=== PATIENT | female | born 1985 | race Caucasian/White ===

== ENCOUNTER 2018-05-30 09:46 | Emergency (ER) | payer OTHER, SELFPAY ==
[2018-05-30 10:08] VITALS: BP 146/89; PULSE 92; RESP 16; TEMP 37; O2SAT 96
--- NOTE | 2018-05-30 10:27 | ED.GENADUL_ITS ---
Disposition Clinical Impression: Acute streptococcal pharyngitis Disposition: HOME Condition: Good Instructions: Pharyngitis (ED) Additional Instructions: Follow-up with regular doctor if not improving in 5 days time Tylenol and/or ibuprofen as needed for discomfort. Take antibiotic as prescribed. Warm salt water gargles will assist in decreasing discomfort. Hydrate with fluids and/or popsicles. Prescriptions: Azithromycin [Azithromycin Pack #6] 250 mg PO DIRECTED #6 tablet Medical Decision Making - Lab Data POC Strep Test-MELY(Rapid) Start: 05/30/18 10: 14 Freq: .Rapid Strep Test Status: Active Document 05/30/18 10:15 MMQ (Rec: 05/30/18 10:15 MMQ [id number]) Strep test-MELY(Rapid)-POC POC-Strep test-MELY (Rapid) Positive - Medical Decision Making 33-year-old female with recurrent pharyngitis, positive strep test. There may be a cycling of the infection due to multiple sick family members and I discussed with the patient and her . We will treat with a course of azithromycin. Pt will follow up with PMD for recheck if not improving History of Present Illness - General Chief complaint: Sorethroat Stated complaint: STREP? Time Seen by Provider: 05/30/18 10:24 - History of Present Illness Initial comments: Healthy 23-year-old female recently treated for streptococcal pharyngitis, with recurrent sick contacts with family members, now with 2 days of recurrence mild , posterior throat pain is nonradiating constant, improved with fluids. No change to voice or ability to swallow. - Related Data Lysine 500 mg PO DAILY 12/09/14 Multivitamins W-Ca,Fe [Prenavite] 1 each PO DAILY 12/09/14 Cholecalciferol (Vitamin D3) [Vitamin D3] 2,000 unit PO DAILY #90 cap 05/26/17 Levothyroxine [Levothroid] 25 mcg PO DAILY #90 tab-cap 05/26/17 Norgestimate-Ethinyl Estradiol [Sprintec] 1 tab-cap PO DAILY #3 pack 05/26/17 Azithromycin [Azithromycin Pack #6] 250 mg PO DIRECTED #6 tablet 05/30/18 Allergies Allergy/AdvReac Type Severity Reaction Status Date / Time No Known Allergies Allergy Unverified 05/30/18 10:11 Review of Systems Other: 6 systems reviewed, otherwise negative Past Medical History - Past Medical History See nursing note General Exam - General Limitations: no limitations General appearance: alert, in no apparent distress - Head Head exam: Present: atraumatic, normocephalic - Eye Eye exam: Present: PERRL, EOMI - ENT ENT exam: Present: other (Bilateral tonsillar erythema, uvula midline, no asymmetry, scant exudate present.) - Neck Neck exam: Present: tenderness, full ROM, lymphadenopathy. Absent: meningismus - Respiratory Respiratory exam: Absent: respiratory distress - Cardiovascular Cardiovascular Exam: Present: regular rate, normal rhythm - Neurological Exam Neurological exam: Present: alert, oriented X3 - Psychiatric Psychiatric exam: Present: normal affect, normal mood - Skin Skin exam: Present: warm, dry, intact Course Vital Signs - 24 hr 05/30/18 10:08 Temperature 37 C Pulse 92 H Respiratory 16 Rate Blood Pressure 146/89 Pulse Oximetry 96
== END 2018-05-30 10:35 | disposition home or self-care (01) ==
PROVIDERS: Emergency Provider Emergency Medicine; PCP Physician Assistant Medical
DX: J02.0 Streptococcal pharyngitis (principal)
CPT/HCPCS: 87880; 99283

== ENCOUNTER 2019-06-15 14:29 | Outpatient (REF) | payer OTHER, SELFPAY ==
[2019-06-15 22:11] LABS: ALT 29 U/L (14-59); AST 12 U/L (15-37); Albumin 3.5 g/dL (3.4-5.0); Alkaline Phosphatase 83 U/L (46-116); Anion Gap 9.9 mmol/L (3-11); BUN 11 mg/dL (7-18); Bilirubin, Total 0.2 mg/dL (0.2-1.0); CO2 27.1 mmol/L (21.0-32.0); CREATININE 0.61 mg/dL (0.55-1.02); Calcium 8.9 mg/dL (8.5-10.1); Calculated LDL 102 mg/dL; Chloride 102 mmol/L (98-107); Cholesterol 165 mg/dL (50-200); Glucose 94 mg/dL (70-100); HDL Cholesterol 39 mg/dL (40-60); Potassium 3.9 mmol/L (3.5-5.1); Sodium 139 mmol/L (136-145); TSH 1.66 uIU/mL (0.36-3.74); Triglyceride 123 mg/dL (30-150)
[2019-06-15 22:22] LABS: Hemoglobin A1C 5.8 % (4.5-6.2)
[2019-06-15 22:28] LABS: Total Protein 7.3 g/dL (6.4-8.2)
== END 2019-06-15 14:49 ==
LOC: NCHCN 14:29
PROVIDERS: PCP Physician Assistant Medical; Visit Provider Physician Assistant Medical
DX: Z00.00 Encounter for general adult medical examination without abnormal findings (principal); E03.9 Hypothyroidism, unspecified; Z13.1 Encounter for screening for diabetes mellitus; Z13.220 Encounter for screening for lipoid disorders
CPT/HCPCS: 80053; 80061; 83721; 83036; 84443

== ENCOUNTER 2019-09-20 08:08 | Outpatient (CLI) | payer OTHER, SELFPAY ==
[2019-09-20 08:53] LABS: Hemoglobin A1C 5.6 % (4.5-6.2)
== END 2019-09-20 08:28 ==
PROVIDERS: PCP Physician Assistant Medical; Visit Provider Advanced Practice Midwife
DX: E03.9 Hypothyroidism, unspecified (principal); Z86.32 Personal history of gestational diabetes
CPT/HCPCS: 36415; 83036; 84443

== ENCOUNTER 2019-10-19 10:48 | Outpatient (CLI) | payer OTHER, SELFPAY ==
--- NOTE | 2019-10-19 10:00 | DIABASSESS_ITS ---
DESCRIPTION/ASSESSMENT: Eva Mcdonald presents for nutrition consult for gestational diabetes with fasting blood sugars elevated in her first trimester consistently above 100mg/dl. Post meal blood sugars at goal of less than 135mg/dl. Currently taking 1500mg Metformin. Eva had gestational diabetes with her past with 7pound 15oz baby 2 weeks early. Eva states she is exhausted. She has is[employer]genix protein drink for breakfast with apple, banana, yogurt as snack; lunch is another shake, salad or leftovers. SHe has found 1/2 c pasta does not raise her blood sugar. Supper of meat, potato, vegetable. She has string cheese for snack or small bag chips or pretzels. States she is physically inactive due to her fatigue but hopes to increase this when she feels better. INTERVENTION: Eva is engaged in the conversation and comes well informed. She has already cut her carbohydrate portions. Reviewed gestational diabetes food guidelines focused on number of servings per meal and portions for 1 carbohydrate serving. Reviewed distribution of carbohydrate. Discussed options for affecting fasting blood sugar including physical activity and snack versus no snack in evening. ACTION PLAN: Eva will: document food and blood sugars per protocol; track evening food for impact on fasting blood sugar. She will increase her physical activity when she regains some energy. We will be in touch by telephone if blood sugars are not reaching fasting goal. Face to face 35 minutes billed 2 units MNT 10/22/19 Eva presents for diabetes self management with instructions to begin Levemir insulin. Instructed in the use of insulin pen and she is able to return demonstration without difficulty. Reviewed injection sites, disposal of needles, hypoglycemia symptoms and treatment. Explained action of medication. 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 She has my contact information if she needs support for this tonight. TC to say no needles. She is given 10 pen needles to get her started. Eva will contact her provider for a prescription. JANNET rowell,CDE Communication over weekend. Fasting blood sugars 107 Friday and 104 Friday AM. Explained tiny dose can be adjusted. She will contact [facility] in the morning.
== END 2019-10-19 11:08 ==
PROVIDERS: PCP Physician Assistant Medical; Visit Provider Dietitian, Registered
DX: O24.414 Gestational diabetes mellitus in pregnancy, insulin controlled (principal); Z71.3 Dietary counseling and surveillance
CPT/HCPCS: 97802

== ENCOUNTER 2019-10-19 14:39 | Outpatient (REF) | payer OTHER, SELFPAY ==
[2019-10-19 15:47] LABS: *AMPHETAMINES SCREEN URINE Negative (Negative); *BARBITURATES SCREEN URINE Negative (Negative); *BENZODIAZEPINES SCREEN URINE Negative (Negative); Cannabinoids THC Negative (Negative); Cocaine Screen,Urine Negative (Negative); METHADONE URINE SCREEN Negative (Negative); OPIATES URINE SCREEN Negative (Negative)
[2019-10-19 15:56] LABS: Tricyclic Antidepressants Negative (Negative)
[2019-10-23 11:39] LABS: Buprenorphine Negative; Norbuprenorphine Negative
== END 2019-10-19 14:59 ==
LOC: LBN 14:39
PROVIDERS: PCP Physician Assistant Medical; Visit Provider Advanced Practice Midwife
DX: Z34.91 Encounter for supervision of normal pregnancy, unspecified, first trimester (principal)
CPT/HCPCS: 80307; 87086

== ENCOUNTER 2019-10-21 11:48 | Outpatient (REF) | payer OTHER, SELFPAY | END 2019-10-21 12:08 | LOC: LBN 11:48 | PROVIDERS: PCP Physician Assistant Medical; Visit Provider Advanced Practice Midwife | DX: R69 Illness, unspecified (principal) | CPT/HCPCS: 80307; 87086 ==

== ENCOUNTER 2019-10-25 10:20 | Outpatient (REF) | payer OTHER, SELFPAY ==
[2019-10-25 13:04] LABS: PROTEIN 8.7 mg/dL (0.0-11.9)
[2019-10-25 13:07] LABS: TOTAL PROTEIN,URINE TIMED 234.9 mg/24hr (0.0-149.1); Total Volume 2700 ml
== END 2019-10-25 10:40 ==
LOC: NCHCN 10:20
PROVIDERS: Obstetrics & Gynecology; PCP Physician Assistant Medical; Visit Provider Physician Assistant Medical
DX: O24.410 Gestational diabetes mellitus in pregnancy, diet controlled (principal)
CPT/HCPCS: 81050; 84155

== ENCOUNTER 2019-11-18 11:34 | Outpatient (CLI) | payer OTHER, SELFPAY ==
[2019-11-18 12:01] LABS: Abs Immature Grans 0.01 k/cumm (0.0-0.09); Absolute Basophil Count 0.01 k/cumm (0.0-0.2); Absolute Eosinophil Count 0.08 k/cumm (0.0-0.7); Absolute Lymphocyte Count 1.74 k/cumm (1.2-3.4); Absolute Monocyte Count 0.36 k/cumm (0.11-0.7); Absolute Neutrophil Count 5.76 k/cumm (1.2-6.7); Basophils % 0.1; HCT 34.5 % (36.0-46.0); HGB 11.7 g/dL (12.0-15.5); Immature Grans % 0.1 %; Lymphocytes % 21.9; Mean Corp. HGB Concentration 33.9 g/dL (32.0-36.0); Mean Corpuscular Hemoglobin 30.3 pg (27.0-33.0); Mean Corpuscular Volume 89.4 fL (80-95); Mean Platelet Volume 10.6 fL (8.0-11.0); Monocytes % 4.5; Neutrophils % 72.4; Platelet Count 248 x1000/uL (130-400); RBC 3.86 m/cumm (4.00-5.20); RBC Distribution Width 13.2 % (11.7-14.6); White Blood Cell Count 7.96 k/cumm (4.4-10.8)
[2019-11-18 13:26] LABS: TSH (W/Ref FT4) 2.12 uIU/mL (0.36-3.74)
[2019-11-19 09:59] LABS: Hepatitis B Surface Ag Negative (Negative); Hepatitis C Ab w Rflx HCV PCR Negative (Negative)
[2019-11-19 10:10] LABS: HIV-1/2 Ag & Ab Screen Negative (Negative)
[2019-11-19 13:05] LABS: Rubella IgG Ab (UVM) Positive (See Note); Varicella IgG Antibody Positive (See Note)
[2019-11-19 16:26] LABS: AFP 32.8 ng/mL; Calculated age at EDD 36 years; Cigarette smoking status non-Smoker; GA used in risk estimate Scan estimate; INHIBIN 148 pg/mL; IVF Pregnancy No; Initial or repeat testing Initial testing; Insulin dependent diabetes No; Maternal Weight 223 lbs; Number of Fetuses 1; Physician Phone Number 802-748-7300; Prev Down(T21)/Trisomy Pregnan No; Prev Pregnancy w/NTD No; RECOMMENDED FOLLOW UP None.; Results Summary Normal risk; hCG, TOTAL 46.8 IU/mL; uE3 0.86 ng/mL; uE3 MoM 1.33 MoM
[2019-11-19 16:47] LABS: Syphilis Total Ab w/Reflex Nonreactive (Nonreactive)
== END 2019-11-18 11:54 ==
PROVIDERS: PCP Physician Assistant Medical; Visit Provider Obstetrics & Gynecology Gynecology
DX: Z34.91 Encounter for supervision of normal pregnancy, unspecified, first trimester (principal); Z36.89 Encounter for other specified antenatal screening
CPT/HCPCS: 36415; 81511; 86787; 86803; 86850; 86900; 86901; 87340; 87389; 84443; 85025; 86762; 86780

== ENCOUNTER 2020-01-19 00:44 | Outpatient (CLI) | payer OTHER, SELFPAY ==
--- NOTE | 2020-01-19 06:45 | DI.US_ITS ---
EXAM: US OB KENNEY WEIGHT CLINICAL HISTORY: DIABETES,Z34.90. COMPARISON: No exams were available for comparison TECHNIQUE: Transabdominal obstetrical ultrasound performed. FINDINGS: Sonographic images demonstrate a single intrauterine gestation. The placenta is posterior. Sonographically assessed gestational age based upon 25 weeks 5 days which is approximately 1 week gre ater than clinical age. Estimated date of delivery based on this ultrasound is: 28 April 2020 The estimated weight is 845 grams, corresponding to the 88th percentile. heart rate motion is Dopplered at: 147 bpm. Amniotic fluid index: 14.6. Amount of fluid is within normal limits. IMPRESSION: Single live intrauterine gestation as above. DATA REPOSITORY:
== END 2020-01-19 01:04 ==
PROVIDERS: PCP Physician Assistant Medical; Visit Provider Obstetrics & Gynecology
DX: Z34.92 Encounter for supervision of normal pregnancy, unspecified, second trimester (principal); Z3A.25 25 weeks gestation of pregnancy
CPT/HCPCS: 76816

== ENCOUNTER 2020-02-17 16:10 | Outpatient (REF) | payer OTHER, SELFPAY ==
[2020-02-17 16:29] LABS: Abs Immature Grans 0.03 k/cumm (0.0-0.09); Absolute Basophil Count 0.01 k/cumm (0.0-0.2); Absolute Eosinophil Count 0.11 k/cumm (0.0-0.7); Absolute Lymphocyte Count 1.79 k/cumm (1.2-3.4); Absolute Monocyte Count 0.45 k/cumm (0.11-0.7); Absolute Neutrophil Count 6.03 k/cumm (1.2-6.7); Basophils % 0.1; Eosinophils % 1.3; HCT 32.5 % (36.0-46.0); HGB 10.9 g/dL (12.0-15.5); Immature Grans % 0.4 %; Lymphocytes % 21.3; Mean Corp. HGB Concentration 33.5 g/dL (32.0-36.0); Mean Corpuscular Hemoglobin 30.5 pg (27.0-33.0); Mean Platelet Volume 11.3 fL (8.0-11.0); Monocytes % 5.3; Neutrophils % 71.6; Platelet Count 217 x1000/uL (130-400); RBC 3.57 m/cumm (4.00-5.20); RBC Distribution Width 13.4 % (11.7-14.6); White Blood Cell Count 8.42 k/cumm (4.4-10.8)
[2020-02-17 18:45] LABS: Hemoglobin A1C 5.6 % (3.8-5.6)
== END 2020-02-17 16:30 ==
LOC: LBN 16:10
PROVIDERS: PCP Physician Assistant Medical; Visit Provider Obstetrics & Gynecology
DX: O24.414 Gestational diabetes mellitus in pregnancy, insulin controlled (principal)
CPT/HCPCS: 83036; 85025

== ENCOUNTER 2020-02-22 01:56 | Outpatient (CLI) | payer OTHER, SELFPAY ==
--- NOTE | 2020-02-22 07:15 | DI.US_ITS ---
EXAM: US OB KENNEY WEIGHT CLINICAL HISTORY: serial growth assessments,h/o gest diabetes,z86.32. COMPARISON: US OB KENNEY WEIGHT from 01/19/2020 US OB KENNEY WEIGHT from 01/19/2020 TECHNIQUE: Transabdominal obstetrical ultrasound performed. FINDINGS: Sonographic images demonstrate a single living intrauterine gestation in transverse position with the head toward the maternal left.. Sonographically assessed gestational age is 31 weeks 0 days. Estimated date of delivery based on this ultrasound is: 25 April 2020 Estimated date of delivery based upon LMP: 06 May 2020 heart rate motion is Dopplered at: 150 bpm. Estimated weight 1682 grams, 89 percentile Amniotic fluid index: 15.8 cm. Amount of fluid is within normal limits. IMPRESSION: Fetus is measuring large for gestational age.. DATA REPOSITORY:
== END 2020-02-22 02:16 ==
PROVIDERS: PCP Physician Assistant Medical; Visit Provider Obstetrics & Gynecology Gynecology
DX: O26.843 Uterine size-date discrepancy, third trimester (principal); Z3A.31 31 weeks gestation of pregnancy
CPT/HCPCS: 76816

== ENCOUNTER 2020-03-21 02:33 | Outpatient (CLI) | payer OTHER, SELFPAY ==
--- NOTE | 2020-03-21 10:45 | DI.US_ITS ---
EXAM: US OB KENNEY WEIGHT CLINICAL HISTORY: growth, GESTATIONAL DIABETES Z86.32 TECHNIQUE: Ultrasound performed using standard protocol. COMPARISON: US US OB KENNEY WEIGHT from 02/22/2020 FINDINGS: Ob ultrasound was performed utilizing 3rd trimester protocol. biometry is consistent with gest ational age 35 weeks 6 days and EDC 04/25/2020. The estimated weight is 2511 grams which is at the 82nd percentile for predicted gestational a ge. Placenta is posterior with no evidence of placenta previa. There is visually a normal quantity of am niotic fluid and the KENNEY is 14. heart rate is 139 BPM. Fetus is in transverse lie. DATA REPOSITORY:
== END 2020-03-21 02:53 ==
PROVIDERS: PCP Physician Assistant Medical; Visit Provider Obstetrics & Gynecology Gynecology
DX: Z86.32 Personal history of gestational diabetes (principal); Z34.93 Encounter for supervision of normal pregnancy, unspecified, third trimester; Z3A.35 35 weeks gestation of pregnancy
CPT/HCPCS: 76816

== ENCOUNTER 2020-03-28 07:03 | Outpatient (CLI) | payer OTHER, SELFPAY | END 2020-03-28 07:23 | PROVIDERS: PCP Physician Assistant Medical; Visit Provider Obstetrics & Gynecology | DX: O24.410 Gestational diabetes mellitus in pregnancy, diet controlled (principal); Z3A.34 34 weeks gestation of pregnancy | CPT/HCPCS: 59025 ==

== ENCOUNTER 2020-03-31 09:39 | Outpatient (CLI) | payer OTHER, SELFPAY | END 2020-03-31 09:59 | PROVIDERS: PCP Physician Assistant Medical; Visit Provider Obstetrics & Gynecology Gynecology | DX: O24.410 Gestational diabetes mellitus in pregnancy, diet controlled (principal); Z3A.34 34 weeks gestation of pregnancy | CPT/HCPCS: 59025 ==

== ENCOUNTER 2020-04-04 08:38 | Outpatient (CLI) | payer OTHER, SELFPAY | END 2020-04-04 08:58 | PROVIDERS: PCP Physician Assistant Medical; Visit Provider Obstetrics & Gynecology | DX: O24.415 Gestational diabetes mellitus in pregnancy, controlled by oral hypoglycemic drugs (principal); Z3A.35 35 weeks gestation of pregnancy | CPT/HCPCS: 59025 ==

== ENCOUNTER 2020-04-07 07:49 | Outpatient (CLI) | payer OTHER, SELFPAY | END 2020-04-07 08:09 | PROVIDERS: PCP Physician Assistant Medical; Visit Provider Obstetrics & Gynecology | DX: O24.415 Gestational diabetes mellitus in pregnancy, controlled by oral hypoglycemic drugs (principal); Z3A.35 35 weeks gestation of pregnancy | CPT/HCPCS: 59025; 87081 ==

== ENCOUNTER 2020-04-07 11:00 | Outpatient (REF) | payer OTHER, SELFPAY | END 2020-04-07 11:20 | LOC: LBN 11:00 | PROVIDERS: PCP Physician Assistant Medical; Referring Provider Obstetrics & Gynecology Gynecology; Visit Provider Advanced Practice Midwife | DX: Z34.93 Encounter for supervision of normal pregnancy, unspecified, third trimester (principal); Z36.85 Encounter for antenatal screening for Streptococcus B | CPT/HCPCS: 87081 ==

== ENCOUNTER 2020-04-11 08:37 | Outpatient (CLI) | payer OTHER, SELFPAY | END 2020-04-11 08:57 | PROVIDERS: PCP Physician Assistant Medical; Visit Provider Obstetrics & Gynecology Gynecology | DX: O24.415 Gestational diabetes mellitus in pregnancy, controlled by oral hypoglycemic drugs (principal); Z3A.36 36 weeks gestation of pregnancy | CPT/HCPCS: 59025 ==

== ENCOUNTER 2020-04-14 08:02 | Outpatient (CLI) | payer OTHER, SELFPAY | END 2020-04-14 08:22 | PROVIDERS: PCP Physician Assistant Medical; Visit Provider Obstetrics & Gynecology | DX: O24.113 Pre-existing type 2 diabetes mellitus, in pregnancy, third trimester (principal) | CPT/HCPCS: 59025 ==

== ENCOUNTER 2020-04-18 07:50 | Outpatient (CLI) | payer OTHER, SELFPAY ==
[2020-04-18 19:59] LABS: COVID-19 RT-PCR UVMMC Result Negative (Negative)
== END 2020-04-18 08:10 ==
PROVIDERS: PCP Physician Assistant Medical; Visit Provider Obstetrics & Gynecology
DX: Z11.59 Encounter for screening for other viral diseases (principal)
CPT/HCPCS: U0003

== ENCOUNTER 2020-04-18 08:54 | Outpatient (CLI) | payer OTHER, SELFPAY | END 2020-04-18 09:14 | PROVIDERS: PCP Physician Assistant Medical; Visit Provider Obstetrics & Gynecology | DX: O24.113 Pre-existing type 2 diabetes mellitus, in pregnancy, third trimester (principal); Z3A.37 37 weeks gestation of pregnancy | CPT/HCPCS: 59025 ==

== ENCOUNTER 2020-04-18 13:31 | Outpatient (REF) | payer OTHER, SELFPAY ==
[2020-04-18 14:17] LABS: HCT 33.8 % (36.0-46.0); HGB 10.8 g/dL (12.0-15.5); Mean Corpuscular Hemoglobin 28.7 pg (27.0-33.0); Mean Corpuscular Volume 89.9 fL (80-95); Mean Platelet Volume 11.6 fL (8.0-11.0); Platelet Count 206 x1000/uL (130-400); RBC 3.76 m/cumm (4.00-5.20); RBC Distribution Width 14.3 % (11.7-14.6)
[2020-04-18 14:46] LABS: ALT 21 U/L (14-59); AST 16 U/L (15-37); Albumin 2.4 g/dL (3.4-5.0); Alkaline Phosphatase 93 U/L (46-116); Anion Gap 7.7 mmol/L (3-11); BUN 12 mg/dL (7-18); Bilirubin, Total 0.2 mg/dL (0.2-1.0); CO2 25.3 mmol/L (21.0-32.0); CREATININE 0.69 mg/dL (0.55-1.02); Calcium 8.5 mg/dL (8.5-10.1); Chloride 105 mmol/L (98-107); Glucose 98 mg/dL (74-106); Potassium 3.6 mmol/L (3.5-5.1); Sodium 138 mmol/L (136-145); Total Protein 6.4 g/dL (6.4-8.2)
== END 2020-04-18 13:51 ==
LOC: LBN 13:31
PROVIDERS: PCP Physician Assistant Medical; Visit Provider Obstetrics & Gynecology
DX: O10.913 Unspecified pre-existing hypertension complicating pregnancy, third trimester (principal)
CPT/HCPCS: 80053; 85027

== ENCOUNTER 2020-04-18 14:58 | Outpatient (CLI) | payer OTHER, SELFPAY | END 2020-04-18 15:18 | PROVIDERS: PCP Physician Assistant Medical; Visit Provider Obstetrics & Gynecology | DX: Z39.1 Encounter for care and examination of lactating mother (principal) | CPT/HCPCS: E0602 ==

== ENCOUNTER 2020-04-21 00:31 | Outpatient (CLI) | payer OTHER, SELFPAY ==
--- NOTE | 2020-04-21 07:00 | DI.US_ITS ---
EXAM: US OB KENNEY WEIGHT CLINICAL HISTORY: f/u EFW, 32 wks preg, hx gest diabetes, Z3A.32, Z86.32. TECHNIQUE: Transabdominal obstetrical ultrasound performed. COMPARISON: US US OB KENNEY WEIGHT from 03/21/2020 FINDINGS: Transabdominal obstetrical ultrasound performed. FINDINGS: Number of fetuses: One. position: Cephalic heart rate: 155 bpm. Placental location: Posterior. No evidence of previa. BIOMETRIC DATA: EFW: 3578 grms 82% Composite Age: 39 weeks EDC: 04/28/2020 Heart Rate: 155BPM Amniotic fluid index: 11.4 cm. Amount of fluid is within normal limits. IMPRESSION: Single live intrauterine gestation as above. DATA REPOSITORY:
== END 2020-04-21 00:51 ==
PROVIDERS: PCP Physician Assistant Medical; Visit Provider Obstetrics & Gynecology Gynecology
DX: Z34.93 Encounter for supervision of normal pregnancy, unspecified, third trimester (principal); Z3A.32 32 weeks gestation of pregnancy; Z86.32 Personal history of gestational diabetes
CPT/HCPCS: 76816

== ENCOUNTER 2020-04-21 09:48 | Outpatient (CLI) | payer OTHER, SELFPAY | END 2020-04-21 10:08 | PROVIDERS: PCP Physician Assistant Medical; Visit Provider Obstetrics & Gynecology Gynecology | DX: O24.113 Pre-existing type 2 diabetes mellitus, in pregnancy, third trimester (principal) | CPT/HCPCS: 59025 ==

== ENCOUNTER 2020-04-22 07:52 | Inpatient (IN) | payer OTHER, SELFPAY ==
[2020-04-22 09:04] LABS: HCT 33.3 % (36.0-46.0); HGB 10.9 g/dL (12.0-15.5); Mean Corp. HGB Concentration 32.7 g/dL (32.0-36.0); Mean Corpuscular Hemoglobin 29.3 pg (27.0-33.0); Mean Corpuscular Volume 89.5 fL (80-95); Mean Platelet Volume 11.2 fL (8.0-11.0); Platelet Count 189 x1000/uL (130-400); RBC 3.72 m/cumm (4.00-5.20); RBC Distribution Width 14.4 % (11.7-14.6); White Blood Cell Count 8.09 k/cumm (4.4-10.8)
[2020-04-22] MEDS: Normal Saline Flush 10 ML SYR IVP ×2 (09:22→09:54)
[2020-04-22] MEDS: Oxytocin/Normal Saline 30 UNITS/500 ML BAG IV (09:55)
[2020-04-22] MEDS: Lactated Ringers 1,000 ML 125 ML IV ×2 (10:05→17:22)
[2020-04-23] MEDS: Oxytocin/Normal Saline 30 UNITS/500 ML BAG IV (01:34)
[2020-04-23] MEDS: Calcium Carbonate *TUMS* 500 MG CHEW 1000 MG PO (02:00)
[2020-04-23] MEDS: Hamamelis Leaf/Glycerin 100 EACH BOX PR (03:45)
[2020-04-23] MEDS: Docusate Sodium 100 MG CAP PO (08:50)
[2020-04-23] MEDS: Acetaminophen 325 MG TAB 650 MG PO (11:17)
[2020-04-23] MEDS: Ibuprofen 600 MG TAB PO (20:25)
--- NOTE | 2020-04-24 10:57 | W.PM.PROGNOT ---
Date of Service Date of service: 04/24/20 Time of Service: 10:57 Assessment and Plan Assessment and plan (1) (normal spontaneous vaginal delivery): Status: Acute (2) DM type 2 (diabetes mellitus, type 2): Status: Acute Assessment and plan: Plan for discharge home today. Will continue Levemir 10 units qam. Follow up in the clinic in 1 week. Subjective Subjective Interval history since last seen: Doing well. Minimal lochia FBS in 90s. Postprandial 140s Currently on 10 units of levemir. Objective Objective Clinical Data: Vital Signs Pain Level 2 04/23/20 20:25 Laboratory Results WBC Cancelled 04/24/20 05:35 RBC Cancelled 04/24/20 05:35 Hgb Cancelled 04/24/20 05:35 Hct Cancelled 04/24/20 05:35 MCV Cancelled 04/24/20 05:35 MCH Cancelled 04/24/20 05:35 MCHC Cancelled 04/24/20 05:35 RDW Cancelled 04/24/20 05:35 Plt Count Cancelled 04/24/20 05:35 MPV Cancelled 04/24/20 05:35 Patient ABO/Rh AB Positive 04/22/20 08:45 Antibody Screen Negative 04/22/20 08:45
== END 2020-04-24 14:15 | disposition home or self-care (01) | DRG 807 ==
PROVIDERS: Admitting Provider Obstetrics & Gynecology Gynecology; PCP Physician Assistant Medical; Visit Provider Obstetrics & Gynecology Gynecology
DX: O24.12 Pre-existing type 2 diabetes mellitus, in childbirth (principal); Z37.0 Single live birth; O70.0 First degree perineal laceration during delivery; O99.284 Endocrine, nutritional and metabolic diseases complicating childbirth; Z3A.38 38 weeks gestation of pregnancy; E11.9 Type 2 diabetes mellitus without complications; E02 Subclinical iodine-deficiency hypothyroidism; Z79.4 Long term (current) use of insulin
CPT/HCPCS: 36415; 85027; 86850; 86900; 86901; 99233; J3490

== ENCOUNTER 2020-06-06 09:44 | Outpatient (REF) | payer OTHER, SELFPAY ==
--- NOTE | 2020-06-06 09:15 | PAPFT_PTH ---
PATIENT: Eva Mcdonald LOC: [facility]#:[id number] AGE/SX: 35/F ROOM: RE06/06/[address]: Ophelia Sims : 1985 BED: DIS: 06/06/2020 SPEC #: [id number] RECD: 06/06/20 12:39 STATUS: PEDRO REQ #: [id number] CHICA: 06/06/20 09:[address]: Ophelia Sims DEPT: [facility] Cytology RECD BY: Annalise Knox ENTERED: 06/06/20 12:39 SP TYPE: PAPFT OTHR DR: Jerry Hess Tissues: 1 - CX/ENDOCX FOR PAP SMEARS Procedures: PAP THIN PREP/UVM Screening HPV DNA PROBE Comments: [id number]
== END 2020-06-06 10:04 ==
LOC: LBN 09:44
PROVIDERS: PCP Physician Assistant Medical; Visit Provider Obstetrics & Gynecology Gynecology
DX: Z11.51 Encounter for screening for human papillomavirus (HPV) (principal)
CPT/HCPCS: 88142; 87624

== ENCOUNTER 2020-06-27 15:47 | Outpatient (REF) | payer OTHER, SELFPAY ==
[2020-06-27 19:25] LABS: Abs Immature Grans 0.01 10^3/uL (0.0-0.06); Absolute Basophil Count 0.07 10^3/uL (0.0-0.2); Absolute Lymphocyte Count 2.03 10^3/uL (1.2-3.4); Absolute Monocyte Count 0.44 10^3/uL (0.1-0.8); Basophils % 1.1; Eosinophils % 4.6; HCT 36.9 % (36.0-46.0); HGB 12.1 g/dL (11.2-15.7); Immature Grans % 0.2; MCH 28.3 pg (27.0-33.0); MCHC 32.8 % (32.0-36.0); MCV 86.2 fL (80-95); MPV 11.7 fL (8.0-11.0); Monocytes % 6.7; Neutrophils % 56.4; Nucleated RBC 0 %; Platelet Count 272 10^3/uL (130-400); RBC 4.28 10^6/uL (3.93-5.22); RDW 13.9 % (11.7-14.6); RDW-SD 43.9 fL; WBC 6.55 10^3/uL (4.4-10.8)
[2020-06-27 20:06] LABS: Hemoglobin A1C 5.6 % (<5.7)
== END 2020-06-27 16:07 ==
LOC: NCHCN 15:47
PROVIDERS: PCP Physician Assistant Medical; Visit Provider Physician Assistant Medical
DX: E03.9 Hypothyroidism, unspecified (principal); Z86.32 Personal history of gestational diabetes
CPT/HCPCS: 83036; 84443; 85025

== ENCOUNTER 2021-07-10 12:41 | Outpatient (REF) | payer OTHER, SELFPAY ==
[2021-07-10 19:53] LABS: Abs Immature Grans 0.02 10^3/uL (0.0-0.06); Absolute Basophil Count 0.06 10^3/uL (0.0-0.2); Absolute Eosinophil Count 0.11 10^3/uL (0.0-0.7); Absolute Lymphocyte Count 1.61 10^3/uL (1.2-3.4); Absolute Monocyte Count 0.37 10^3/uL (0.1-0.8); Absolute Neutrophil Count 4.52 10^3/uL (1.2-6.7); Basophils % 0.9; Eosinophils % 1.6; HCT 40.6 % (36.0-46.0); HGB 13.1 g/dL (11.2-15.7); Immature Grans % 0.3; Lymphocytes % 24.1; MCHC 32.3 % (32.0-36.0); MCV 89.8 fL (80-95); MPV 11.3 fL (8.0-11.0); Monocytes % 5.5; Neutrophils % 67.6; Nucleated RBC 0 %; Platelet Count 291 10^3/uL (130-400); RBC 4.52 10^6/uL (3.93-5.22); RDW 12.7 % (11.7-14.6); RDW-SD 41.9 fL; WBC 6.69 10^3/uL (4.4-10.8)
[2021-07-10 20:40] LABS: TSH 0.98 uIU/mL (0.36-3.74)
== END 2021-07-10 12:42 | disposition home or self-care (01) ==
LOC: NCHCN 12:41
PROVIDERS: PCP Physician Assistant Medical; Referring Provider Physician Assistant Medical; Visit Provider Physician Assistant Medical
DX: R73.01 Impaired fasting glucose (principal); E03.9 Hypothyroidism, unspecified; N92.6 Irregular menstruation, unspecified
CPT/HCPCS: 84443; 85025

== ENCOUNTER 2021-08-15 09:41 | Outpatient (CLI) | payer OTHER, SELFPAY ==
[2021-08-15 20:12] LABS: COVID-19 RT-PCR UVMMC Result Negative (Negative)
== END 2021-08-15 09:42 | disposition home or self-care (01) ==
LOC: LBO 09:45
PROVIDERS: PCP Physician Assistant Medical; Visit Provider Nurse Practitioner Family
DX: Z20.822 Contact with and (suspected) exposure to COVID-19 (principal)
CPT/HCPCS: U0003

== ENCOUNTER 2021-08-19 16:28 | Outpatient (REF) | payer OTHER, SELFPAY ==
[2021-08-20 13:05] LABS: COVID-19 RT-PCR UVMMC Result Negative (Negative)
== END 2021-08-19 16:29 | disposition home or self-care (01) ==
LOC: LBN 16:28
PROVIDERS: PCP Physician Assistant Medical; Visit Provider Nurse Practitioner Family
DX: Z20.822 Contact with and (suspected) exposure to COVID-19 (principal); J06.9 Acute upper respiratory infection, unspecified
CPT/HCPCS: U0003

== ENCOUNTER 2022-03-27 11:52 | Outpatient (REF) | payer OTHER, SELFPAY ==
[2022-03-27 12:05] LABS: Source Nasal/Nares
[2022-03-27 16:06] LABS: COVID-19 PCR Negative (Negative)
== END 2022-03-27 11:53 | disposition home or self-care (01) ==
LOC: LBO 11:52
PROVIDERS: PCP Physician Assistant Medical; Visit Provider Nurse Practitioner Family
DX: Z20.822 Contact with and (suspected) exposure to COVID-19 (principal)
CPT/HCPCS: 87635

== ENCOUNTER 2022-09-21 17:44 | Outpatient (REF) | payer OTHER, SELFPAY | END 2022-09-21 17:45 | disposition home or self-care (01) | LOC: LBN 17:44 | PROVIDERS: PCP Physician Assistant Medical; Visit Provider Physician Assistant | DX: J02.9 Acute pharyngitis, unspecified (principal) | CPT/HCPCS: 87070 ==

== ENCOUNTER 2022-11-06 03:04 | Outpatient (CLI) | payer OTHER, SELFPAY ==
[2022-11-06 08:46] LABS: HCT 40.2 % (36.0-46.0); HGB 13.4 g/dL (11.2-15.7); MCH 29.3 pg (27.0-33.0); MCHC 33.3 % (32.0-36.0); MCV 88 fL (80-95); MPV 10.3 fL (8.0-11.0); Platelet Count 299 10^3/uL (130-400); RBC 4.58 10^6/uL (3.93-5.22); RDW-SD 41.4 fL; WBC 7.17 10^3/uL (4.4-10.8)
[2022-11-06 09:54] LABS: Calculated LDL 135 mg/dL (<100); Cholesterol 209 mg/dL (<200); HDL Cholesterol 50 mg/dL (40-60); TSH 2.28 uIU/mL (0.36-3.74); Triglyceride 121 mg/dL (<150)
[2022-11-07 14:24] LABS: Hemoglobin A1C 6.3 % (<5.7)
== END 2022-11-06 03:05 | disposition home or self-care (01) ==
LOC: LBO 03:04
PROVIDERS: PCP Physician Assistant Medical; Visit Provider Physician Assistant Medical
DX: R73.03 Prediabetes (principal); E03.9 Hypothyroidism, unspecified; N92.0 Excessive and frequent menstruation with regular cycle
CPT/HCPCS: 36415; 80061; 85027; 83036; 84443; 85025

== ENCOUNTER 2023-05-09 14:14 | Outpatient (REF) | payer OTHER, SELFPAY ==
[2023-05-09 15:31] LABS: Anion Gap 7.9 mmol/L (3-11); BUN 13 mg/dL (7-18); CO2 27.1 mmol/L (21.0-32.0); CREATININE 0.6 mg/dL (0.55-1.02); Calcium 9.2 mg/dL (8.5-10.1); Chloride 105 mmol/L (98-107); Estimated GFR 117.02 (mL/min/1.73m2); Glucose 119 mg/dL (74-106); Potassium 3.8 mmol/L (3.5-5.1); Sodium 140 mmol/L (136-145)
[2023-05-09 15:35] LABS: Hemoglobin A1C 6.3 % (<5.7)
== END 2023-05-09 14:15 | disposition home or self-care (01) ==
LOC: NCHCN 14:14
PROVIDERS: PCP Physician Assistant Medical; Visit Provider Physician Assistant Medical
DX: I10 Essential (primary) hypertension (principal); R73.03 Prediabetes
CPT/HCPCS: 80048; 83036

== ENCOUNTER 2023-07-15 20:37 | Outpatient (REF) | payer OTHER, SELFPAY ==
[2023-07-15 16:08] LABS: ALT 24 U/L (14-59); AST 12 U/L (15-37); Albumin 3.5 g/dL (3.4-5.0); Alkaline Phosphatase 79 U/L (46-116); Anion Gap 8.4 mmol/L (3-11); BUN 13 mg/dL (7-18); Bilirubin, Total 0.3 mg/dL (0.2-1.0); CO2 28.6 mmol/L (21.0-32.0); CREATININE 0.6 mg/dL (0.55-1.02); Calcium 9.5 mg/dL (8.5-10.1); Chloride 101 mmol/L (98-107); Estimated GFR 117.02 (mL/min/1.73m2); Glucose 134 mg/dL (74-106); Potassium 3.6 mmol/L (3.5-5.1); Sodium 138 mmol/L (136-145); Total Protein 7.9 g/dL (6.4-8.2)
== END 2023-07-15 20:38 | disposition home or self-care (01) ==
LOC: NCHCN 20:37
PROVIDERS: PCP Physician Assistant Medical; Visit Provider Physician Assistant Medical
DX: E03.9 Hypothyroidism, unspecified (principal); R03.0 Elevated blood-pressure reading, without diagnosis of hypertension
CPT/HCPCS: 80053; 84443

== ENCOUNTER 2023-11-20 10:37 | Outpatient (CLI) | payer OTHER, SELFPAY ==
[2023-11-20 09:17] LABS: Hemoglobin A1C 6.4 % (<5.7)
[2023-11-20 09:41] LABS: Calculated LDL 147 mg/dL (<100); Cholesterol 212 mg/dL (<200); HDL Cholesterol 47 mg/dL (40-60); Triglyceride 94 mg/dL (<150)
== END 2023-11-20 10:38 | disposition home or self-care (01) ==
LOC: LBO 10:38
PROVIDERS: PCP Physician Assistant Medical; Visit Provider Physician Assistant Medical
DX: R73.03 Prediabetes (principal); I10 Essential (primary) hypertension
CPT/HCPCS: 36415; 80061; 83036

== ENCOUNTER 2024-01-13 17:33 | Outpatient (REF) | payer OTHER, SELFPAY ==
[2024-01-13 16:01] LABS: Anion Gap 10.2 mmol/L (3-11); BUN 12 mg/dL (7-18); CO2 28.8 mmol/L (21.0-32.0); CREATININE 0.7 mg/dL (0.55-1.02); Calcium 9.2 mg/dL (8.5-10.1); Chloride 100 mmol/L (98-107); Estimated GFR 112.75 (mL/min/1.73m2); Glucose 110 mg/dL (74-106); Potassium 3.3 mmol/L (3.5-5.1); Sodium 139 mmol/L (136-145)
== END 2024-01-13 17:34 | disposition home or self-care (01) ==
LOC: NCHCN 17:33
PROVIDERS: PCP Physician Assistant Medical; Referring Provider Physician Assistant Medical; Visit Provider Physician Assistant Medical
DX: I10 Essential (primary) hypertension (principal)
CPT/HCPCS: 80048

== ENCOUNTER 2024-02-24 13:14 | Outpatient (CLI) | payer OTHER, SELFPAY | END 2024-02-24 13:15 | disposition home or self-care (01) | LOC: LBO 13:14 | PROVIDERS: PCP Physician Assistant Medical; Visit Provider Physician Assistant Medical | DX: R73.03 Prediabetes (principal) | CPT/HCPCS: 36415; 83036 ==

== ENCOUNTER 2024-03-08 13:01 | Outpatient (CLI) | payer OTHER, SELFPAY ==
[2024-03-08 18:06] LABS: Anion Gap 9.6 mmol/L (3-11); BUN 15 mg/dL (7-18); CO2 28.4 mmol/L (21.0-32.0); CREATININE 0.9 mg/dL (0.55-1.02); Calcium 9.1 mg/dL (8.5-10.1); Chloride 101 mmol/L (98-107); Glucose 98 mg/dL (74-106); Potassium 3.6 mmol/L (3.5-5.1); Sodium 139 mmol/L (136-145)
== END 2024-03-08 13:02 | disposition home or self-care (01) ==
LOC: LBO 13:02
PROVIDERS: PCP Physician Assistant Medical; Visit Provider Physician Assistant Medical
DX: E87.6 Hypokalemia (principal)
CPT/HCPCS: 36415; 80048

== ENCOUNTER → 2024-05-04 00:53 | Outpatient (CLI) | payer OTHER, SELFPAY ==
--- NOTE | 2024-05-04 | DI.MAMMO_ITS ---
Exam(s) MAMMO SCREENING EXAM: MAMMO SCREENING CLINICAL HISTORY: Z12.31 Screening. TECHNIQUE: Bilateral full field digital CC and MLO mammographic images were obtained with 3D tomosyn thesis and utilizing computer aided detection (CAD). COMPARISON: None. This is a baseline mammogram on a 39-year-old FINDINGS: There are no spiculated masses nor malignant appearing microcalcification groups. There is no significant architectural distortion nor skin thickening-retraction. IMPRESSION: No radiographic evidence of malignancy. BI-RADS Category 1 - Negative Breast Density - Category B - Scattered areas of fibroglandular density Breast density Category C or D implies that the patient has dense breast tissue. Dense breast tissue can make it harder to find cancer on a mammogram. Dense breast tissue is also associated with an incr eased risk of breast cancer. This information about the result of the mammogram report was provided to the patient to raise their awareness. Use this report when you speak with the patient about their risks for breast cancer, which includes their family history. At that time, you may recommend additional screening tests (Ultrasoun d or MRI) as these tests may add significant information. A negative radiographic report should not delay biopsy if a dominant or clinically suspicious mass is present. Up to ten percent of cancers are not identified on mammography. A negative report may reinforce clinical impression. Adenosis and dense breasts may obscure an underlying neoplasm. False positive reports average 6 to 10%. Patient will receive a letter notifying them of these results.
== END ==
PROVIDERS: PCP Physician Assistant Medical; Visit Provider Physician Assistant Medical
DX: Z12.31 Encounter for screening mammogram for malignant neoplasm of breast (principal)
CPT/HCPCS: 77063; 77067

== ENCOUNTER 2024-07-07 17:37 | Outpatient (REF) | payer OTHER, SELFPAY ==
[2024-07-07 20:02] LABS: Hemoglobin A1C 5.8 % (<5.7)
[2024-07-07 20:05] LABS: ALT 30 U/L (14-59); AST 12 U/L (15-37); Albumin 3.2 g/dL (3.4-5.0); Alkaline Phosphatase 74 U/L (46-116); Anion Gap 7.8 mmol/L (3-11); BUN 12 mg/dL (7-18); CO2 29.2 mmol/L (21.0-32.0); CREATININE 0.8 mg/dL (0.55-1.02); Calcium 8.7 mg/dL (8.5-10.1); Chloride 102 mmol/L (98-107); Estimated GFR 95.46 (mL/min/1.73m2); Glucose 150 mg/dL (74-106); Potassium 3.5 mmol/L (3.5-5.1); Sodium 139 mmol/L (136-145); TSH (W/Ref FT4) 2.06 uIU/mL (0.36-3.74); Total Protein 7.3 g/dL (6.4-8.2)
== END 2024-07-07 17:38 | disposition home or self-care (01) ==
LOC: NCHCN 17:37
PROVIDERS: PCP Physician Assistant Medical; Visit Provider Physician Assistant Medical
DX: I10 Essential (primary) hypertension (principal); E03.9 Hypothyroidism, unspecified; E11.9 Type 2 diabetes mellitus without complications
CPT/HCPCS: 80053; 83036; 84443

== ENCOUNTER 2025-01-26 18:48 | Outpatient (REF) | payer OTHER, SELFPAY ==
--- NOTE | 2025-01-26 17:20 | PAPFT_PTH ---
PATIENT: Eva Mcdonald LOC: [facility]#:[id number] AGE/SX: 39/F ROOM: RE01/26/[address]: Jerry Hess : 1985 BED: DIS: 01/26/2025 SPEC #: [id number] RECD: 01/27/25 12:55 STATUS: PEDRO REQ #: [id number] CHICA: 01/26/25 17:[address]: Jerry Hess DEPT: [facility] Cytology RECD BY: Annalise Knox Tissues: 1 - CX/ENDOCX FOR PAP SMEARS Procedures: PAP THIN PREP/UVM Screening HPV DNA PROBE Comments: [id number] (HPV 16 & 18/45)
== END 2025-01-26 18:49 | disposition home or self-care (01) ==
LOC: NCHCN 18:48
PROVIDERS: PCP Physician Assistant Medical; Visit Provider Physician Assistant Medical
DX: Z11.51 Encounter for screening for human papillomavirus (HPV) (principal); Z01.419 Encounter for gynecological examination (general) (routine) without abnormal findings
CPT/HCPCS: 88142; 87624

== ENCOUNTER 2025-01-31 09:23 | Outpatient (CLI) | payer OTHER, SELFPAY ==
[2025-01-31 10:34] LABS: COMMENT (LAB VIEW ONLY) 157.42 mg/dL; Microalb ug/mg Crea 22.6 ug/mg Cr
[2025-01-31 10:37] LABS: Calculated LDL 119 mg/dL (<100); Cholesterol 197 mg/dL (<200); HDL Cholesterol 53 mg/dL (>or=50); Triglyceride 128 mg/dL (<150)
[2025-01-31 10:40] LABS: Hemoglobin A1C 5.7 % (<5.7)
== END 2025-01-31 09:24 | disposition home or self-care (01) ==
LOC: LBO 09:24
PROVIDERS: PCP Physician Assistant Medical; Visit Provider Physician Assistant Medical
DX: Z13.6 Encounter for screening for cardiovascular disorders (principal); E11.9 Type 2 diabetes mellitus without complications
CPT/HCPCS: 36415; 80061; 82043; 82570; 83036

== ENCOUNTER 2025-04-11 14:41 | Outpatient (CLI) | payer OTHER, SELFPAY ==
--- NOTE | 2025-04-11 14:30 | DI.RAD_ITS ---
Exam(s) XR FOOT LT COMPLETE EXAM: XR FOOT LT COMPLETE CLINICAL HISTORY: please eval pathology, pain lt toe(s), M79.285. TECHNIQUE: 2D digital imaging was performed. Three views. COMPARISON: No exams were available for comparison FINDINGS: BONES: No acute fracture is present. No bony destructive lesion is seen. Small heel spurs. JOINTS: No dislocation present. No significant joint space narrowing. SOFT TISSUE: Normal. IMPRESSION: Small heel spurs. No abnormalities identified involving the toes. DATA REPOSITORY: RADIATION DOSE DELIVERED:
== END 2025-04-11 15:01 ==
LOC: DI 14:45
PROVIDERS: PCP Physician Assistant Medical; Visit Provider Nurse Practitioner Family
DX: M79.675 Pain in left toe(s) (principal)
CPT/HCPCS: 73630

== ENCOUNTER 2025-04-25 02:42 | Outpatient (CLI) | payer OTHER, SELFPAY ==
--- NOTE | 2025-04-25 07:00 | DI.RAD_ITS ---
Exam(s) XR TOE LT GREAT EXAM: XR TOE LT GREAT CLINICAL HISTORY: ? fx,contusion lt great toe,open fx,s90.212a,s92.422B. TECHNIQUE: 2D digital imaging was performed. Three views. COMPARISON: CR XR FOOT LT COMPLETE from 04/11/2025 FINDINGS: BONES: There is a nondisplaced fracture through the tuft of the distal phalanx of the great toe. No bony destructive lesion is seen. JOINTS: No dislocation present. SOFT TISSUE: Normal. IMPRESSION: Nondisplaced fracture of the tuft of the distal phalanx. DATA REPOSITORY: RADIATION DOSE DELIVERED:
== END 2025-04-25 03:02 ==
LOC: DI 02:42
PROVIDERS: PCP Physician Assistant Medical; Visit Provider Podiatrist
DX: S90.212D Contusion of left great toe with damage to nail, subsequent encounter (principal); S92.422D Displaced fracture of distal phalanx of left great toe, subsequent encounter for fracture with routine healing; X58.XXXD Exposure to other specified factors, subsequent encounter
CPT/HCPCS: 73660

== ENCOUNTER 2025-07-19 19:31 | Outpatient (REF) | payer OTHER, SELFPAY | END 2025-07-19 19:32 | disposition home or self-care (01) | LOC: LBN 19:31 | PROVIDERS: PCP Physician Assistant Medical; Visit Provider Physician Assistant | DX: R30.0 Dysuria (principal) | CPT/HCPCS: 87480; 87510; 87660 ==

== ENCOUNTER 2025-08-17 01:56 | Outpatient (CLI) | payer OTHER, SELFPAY ==
[2025-08-17 12:57] LABS: ALT 32 U/L (14-59); AST 12 U/L (15-37); Albumin 3.4 g/dL (3.4-5.0); Alkaline Phosphatase 73 U/L (46-116); Anion Gap 7.9 mmol/L (3-11); BUN 12 mg/dL (7-18); Bilirubin, Total 0.3 mg/dL (0.2-1.0); CO2 30.1 mmol/L (21.0-32.0); Calcium 8.9 mg/dL (8.5-10.1); Chloride 100 mmol/L (98-107); Estimated GFR 115.57 (mL/min/1.73m2); Glucose 99 mg/dL (74-106); Potassium 3.4 mmol/L (3.5-5.1); Sodium 138 mmol/L (136-145); TSH (W/Ref FT4) 1.45 uIU/mL (0.36-3.74); Total Protein 7.6 g/dL (6.4-8.2)
[2025-08-17 14:29] LABS: Hemoglobin A1C 5.7 % (<5.7)
== END 2025-08-17 01:57 | disposition home or self-care (01) ==
LOC: LBO 01:56
PROVIDERS: PCP Physician Assistant Medical; Visit Provider Physician Assistant Medical
DX: E03.9 Hypothyroidism, unspecified (principal); I10 Essential (primary) hypertension; E11.9 Type 2 diabetes mellitus without complications
CPT/HCPCS: 36415; 80053; 83036; 84443

== ENCOUNTER 2025-10-05 17:59 | Outpatient (REF) | payer OTHER, SELFPAY ==
[2025-10-05 22:59] LABS: Microalb ug/mg Crea 12.8 ug/mg Cr
== END 2025-10-05 18:00 | disposition home or self-care (01) ==
LOC: NCHCN 17:59
PROVIDERS: PCP Physician Assistant Medical; Visit Provider Physician Assistant Medical
DX: E11.9 Type 2 diabetes mellitus without complications (principal)
CPT/HCPCS: 82043; 82570